=== PATIENT | male | born 1975 | race Two or more races ===

== ENCOUNTER 2024-12-14 12:01 | Inpatient (IN) | payer OTHER ==
[~2024-12-14] VITALS: Ht 175.3 cm; Wt 107.0 kg
[2024-12-14] MEDS ORDERED: PANTOPRAZOLE SODIUM 40 MG/VIAL VIAL IV ONE (12:15)
[2024-12-14] MEDS ORDERED: PIPERACILLIN/TAZOBACTAM SODIUM 3.375 GM VIAL IV ONE (12:15)
[2024-12-14] MEDS ORDERED: 0.9 % SODIUM CHLORIDE 1,000 ML IV ONE (12:15)
[2024-12-14] MEDS ORDERED: ELIQUIS5 M1 PO (12:21)
[2024-12-14] MEDS ORDERED: NEURONTIN300 MG PO (12:21)
--- NOTE | 2024-12-14 12:25 | NUR ---
SE RECIBE PACIENTE ALERTA Y ORIENTADO X3 EN COMPANIA DE AMBULANCIA LOS CUALES REFIEREN VENIR POR UN [facility]SFER [facility] ACEPTADO POR DRA. GUEVARA POR DIAGNOSRICO DE COLELITIASIS.
[2024-12-14 14:14] LABS: BASO % 0.4 % (0.1-1.2); EOS # 0.53 (0.04-0.54); EOS % 7.4 % (0.7-7.0); LYMPH # 1.42 (1.18-3.74); LYMPH % 19.9 % (19.3-53.1); MEAN PLATELET VOLUME 10.40 fl (9.4-12.4); MONO # 0.73 (0.24-0.82); MONO % 10.3 % (4.7-12.5); NEUT # 4.39 (1.56-6.13); NEUT % 61.7 % (34.0-71.1); RED CELL DISTRIBUTION WIDTH 15.8 % (11.6-14.4)
--- NOTE | 2024-12-14 14:36 | NUR ---
SE EDUCA A PACIENTE SOBR ETRATAMIENTO MEDICO EL CUAL REFIERE ENTENDER, SE COLECTAN MUESTRAS DE LAB Y SE ADMINISTRA MEDICAMENTOS TIMO ORDEN MEDICA.
[2024-12-14 14:41] LABS: ALT/SGPT 288.0 U/L (12-78); AST/SGOT 124.0 U/L (15-37); BILIRUBIN,CONJUGATED 9.54 mg/dL (0.0-0.2); BUN CREA RATIO 8.0 (7.0-25.0); CREATININE SERUM 0.84 mg/dL (0.70-1.30); GFR 96.33; GLOBULINA 3.9 G/DL (2.4-3.5); GLUCOSE FASTING 110.0 mg/dL (65-100); OSMOLALITY SERUM 282.0 MOSM/KG (275-295)
[2024-12-14 14:45] LABS: BILIRUBIN TOTAL 12.9 mg/dL (0.3-1.2)
[2024-12-14 15:15] LABS: URINE APPEARANCE Clear; URINE BILIRRUBIN Large (NEGATIVE); URINE BLOOD Negative; URINE COLOR Dark Yellow; URINE GLUCOSE Negative (NEGATIVE); URINE LEUKOCYTE Trace; URINE NITRATE Negative; URINE PROTEIN Trace (NEGATIVE); URINE UROBILINOGEN 1.0 E.U./dl
[2024-12-14 15:19] LABS: URINE EPITHELIAL CELLS 2.7 uL (0.0-38.8); URINE RBC 4.9 uL (0.0-20.8)
[2024-12-14 15:23] LABS: INR 0.98
[2024-12-14 15:39] LABS: URINE BACTERIA 2.3 uL (0.0-1933); URINE CAST 0.00 uL (0.0-1.40); URINE KETONE 40 (NEGATIVE); URINE WBC 1.5 uL (0.0-23.2)
[2024-12-14] MEDS ORDERED: GABAPENTIN 300 MG CAPSULE PO SCH (21:00)
[2024-12-15 07:28] VITALS: BP 124/85
[2024-12-15] MEDS ORDERED: FAMOTIDINE/PF 20 MG/2 ML VIAL IV SCH ×2 (09:00)
[2024-12-15] MEDS ORDERED: METOPROLOL SUCCINATE 100 MG TAB.SR.24H PO SCH (09:00)
[2024-12-15] MEDS ORDERED: PATIENTS OWN MEDICATION (MEDICAMENTO EN PISO) PO SCH (09:00)
[2024-12-15] MEDS ORDERED: APIXABAN 5 MG TABLET PO SCH (09:00)
[2024-12-15] MEDS ORDERED: MYCOPHENOLATE MOFETIL PO SCH (17:00)
[2024-12-15 18:58] VITALS: BP 133/84; O2SAT 97
[2024-12-16 01:20] VITALS: BP 107/66; O2SAT 96
[2024-12-16 09:20] LABS: BASO % 0.5 % (0.1-1.2); EOS # 0.51 (0.04-0.54); EOS % 8.3 % (0.7-7.0); LYMPH # 1.38 (1.18-3.74); LYMPH % 22.5 % (19.3-53.1); MEAN PLATELET VOLUME 10.10 fl (9.4-12.4); MONO # 0.76 (0.24-0.82); NEUT # 3.43 (1.56-6.13); NEUT % 56.1 % (34.0-71.1); RED CELL DISTRIBUTION WIDTH 16.1 % (11.6-14.4)
[2024-12-16 09:21] LABS: MONO % 12.4 % (4.7-12.5)
[2024-12-16 09:25] VITALS: BP 135/86
[2024-12-16 10:21] LABS: ALT/SGPT 219.0 U/L (12-78); AST/SGOT 102.0 U/L (15-37); BUN CREA RATIO 7.0 (7.0-25.0); CREATININE SERUM 0.99 mg/dL (0.70-1.30); GFR 79.69; GLOBULINA 3.0 G/DL (2.4-3.5); GLUCOSE FASTING 115.0 mg/dL (65-100); OSMOLALITY SERUM 282.0 MOSM/KG (275-295)
[2024-12-16 10:26] LABS: BILIRUBIN TOTAL 13.61 mg/dL (0.3-1.2); BILIRUBIN,CONJUGATED 11.0 mg/dL (0.0-0.2)
[2024-12-16] MEDS ORDERED: ACETAMINOPHEN 500 MG GEL..CAP PO PRN (16:30)
[2024-12-16 17:45] VITALS: BP 128/80; O2SAT 97
[2024-12-17 02:06] VITALS: BP 127/83; O2SAT 96
[2024-12-18 02:01] VITALS: BP 121/81; O2SAT 98
[2024-12-18 06:40] LABS: BASO % 0.6 % (0.1-1.2); EOS # 0.58 (0.04-0.54); EOS % 8.1 % (0.7-7.0); LYMPH # 1.99 (1.18-3.74); LYMPH % 27.8 % (19.3-53.1); MEAN PLATELET VOLUME 10.80 fl (9.4-12.4); MONO # 0.92 (0.24-0.82); NEUT # 3.61 (1.56-6.13); NEUT % 50.3 % (34.0-71.1); RED CELL DISTRIBUTION WIDTH 16.7 % (11.6-14.4)
[2024-12-18 06:50] LABS: MONO % 12.8 % (4.7-12.5)
[2024-12-18 07:30] LABS: ALT/SGPT 163.0 U/L (12-78); AST/SGOT 61.0 U/L (15-37); BUN CREA RATIO 14.0 (7.0-25.0); CREATININE SERUM 0.94 mg/dL (0.70-1.30); GFR 84.61; GLOBULINA 3.0 G/DL (2.4-3.5); GLUCOSE FASTING 95.0 mg/dL (65-100); OSMOLALITY SERUM 283.0 MOSM/KG (275-295)
[2024-12-18 07:33] LABS: BILIRUBIN TOTAL 15.02 mg/dL (0.3-1.2)
[2024-12-18 08:59] VITALS: BP 96/61; O2SAT 98
[2024-12-18 09:11] LABS: ANTI THYROID PEROXIDASE 26 IU/mL (0-34)
[2024-12-18 11:08] LABS: hav igm Negative (Negative); hep b c Negative (Negative); hep b s ag Negative (Negative)
[2024-12-18 13:12] LABS: CA 19-9 18 U/mL (0-35)
[2024-12-18] MEDS ORDERED: DICLOFENAC SODIUM 100 MG SUPP.RECT RECTAL ONE (14:30)
[2024-12-18] MEDS ORDERED: GLUCAGON 1 MG VIAL IV ONE ×2 (14:45→16:30)
[2024-12-18] MEDS ORDERED: IOVERSOL 320 MG/ML - 50 ML VIAL IV ONE (16:15)
[2024-12-19 02:27] VITALS: BP 118/72; O2SAT 96
[2024-12-19 09:03] LABS: BASO % 0.4 % (0.1-1.2); EOS # 0.47 (0.04-0.54); EOS % 6.0 % (0.7-7.0); LYMPH # 1.53 (1.18-3.74); LYMPH % 19.6 % (19.3-53.1); MEAN PLATELET VOLUME 10.50 fl (9.4-12.4); MONO # 0.78 (0.24-0.82); MONO % 10.0 % (4.7-12.5); NEUT # 4.98 (1.56-6.13); NEUT % 63.6 % (34.0-71.1); RED CELL DISTRIBUTION WIDTH 16.7 % (11.6-14.4)
[2024-12-19 09:38] LABS: ALT/SGPT 128.0 U/L (12-78); AST/SGOT 48.0 U/L (15-37); BUN CREA RATIO 13.0 (7.0-25.0); CREATININE SERUM 0.93 mg/dL (0.70-1.30); GFR 85.66; GLOBULINA 3.1 G/DL (2.4-3.5); GLUCOSE FASTING 89.0 mg/dL (65-100); OSMOLALITY SERUM 279.0 MOSM/KG (275-295)
[2024-12-19 09:39] LABS: BILIRUBIN TOTAL 13.75 mg/dL (0.3-1.2)
[2024-12-19 09:56] VITALS: BP 130/87
[2024-12-19] MEDS ORDERED: CIPRO500 MG PO (14:56)
[2024-12-19] MEDS ORDERED: ELIQUIS5 MG PO (14:56)
[2024-12-19] MEDS ORDERED: TOPROL XL100 M1 PO (14:56)
[2024-12-19] MEDS ORDERED: GABAPENTIN300 MG PO (14:57)
[2024-12-19] MEDS ORDERED: ENTRESTO 97 MG1 EACH PO (14:58)
== END 2024-12-19 22:58 | disposition home or self-care (01) | DRG 445 ==
LOC: ER 12:01 → MEDJ 18:51
PROVIDERS: General Practice; Internal Medicine; ADMIT Internal Medicine; ATTEND Internal Medicine
PROC: BF37YZZ Magnetic Resonance Imaging (MRI) of Pancreas using Other Contrast (ICD-10-PCS; 2024-12-14)
PROC: B24BYZZ Ultrasonography of Heart with Aorta using Other Contrast (ICD-10-PCS; 2024-12-14)
PROC: BW30YZZ Magnetic Resonance Imaging (MRI) of Abdomen using Other Contrast (ICD-10-PCS; 2024-12-16)
PROC: 4A12X4Z Monitoring of Cardiac Electrical Activity, External Approach (ICD-10-PCS; 2024-12-17)
PROC: 0FJD8ZZ Inspection of Pancreatic Duct, Via Natural or Artificial Opening Endoscopic (ICD-10-PCS; principal; 2024-12-18 13:45)
DX: K80.20 Calculus of gallbladder without cholecystitis without obstruction (principal); I50.20 Unspecified systolic (congestive) heart failure; R17 Unspecified jaundice; R69 Illness, unspecified; I11.0 Hypertensive heart disease with heart failure; I48.91 Unspecified atrial fibrillation
CPT/HCPCS: 74182

== ENCOUNTER 2025-04-01 06:00 | Day surgery (SDC) | payer OTHER ==
[2025-03-25 07:50] VITALS: BP 134/92
[2025-03-25 08:13] LABS: BASO % 0.2 % (0.1-1.2); EOS # 0.32 (0.04-0.54); EOS % 3.7 % (0.7-7.0); LYMPH # 1.66 (1.18-3.74); LYMPH % 19.4 % (19.3-53.1); MEAN PLATELET VOLUME 9.80 fl (9.4-12.4); MONO # 0.84 (0.24-0.82); MONO % 9.8 % (4.7-12.5); NEUT # 5.69 (1.56-6.13); NEUT % 66.7 % (34.0-71.1); RED CELL DISTRIBUTION WIDTH 13.1 % (11.6-14.4)
[2025-03-25 08:58] LABS: ALT/SGPT 37.0 U/L (12-78); AST/SGOT 23.0 U/L (15-37); BILIRUBIN TOTAL 0.95 mg/dL (0.3-1.2); BUN CREA RATIO 12.0 (7.0-25.0); CREATININE SERUM 0.77 mg/dL (0.70-1.30); GFR 106.51; GLOBULINA 3.2 G/DL (2.4-3.5); GLUCOSE FASTING 108.0 mg/dL (65-100); OSMOLALITY SERUM 282.0 MOSM/KG (275-295)
[2025-03-25 09:12] LABS: INR 1.06
[2025-03-30 14:15] LABS: URINE APPEARANCE Clear; URINE BILIRRUBIN Negative (NEGATIVE); URINE BLOOD Negative; URINE COLOR Yellow; URINE GLUCOSE Negative (NEGATIVE); URINE KETONE Negative (NEGATIVE); URINE LEUKOCYTE Negative; URINE NITRATE Negative; URINE PROTEIN Trace (NEGATIVE); URINE UROBILINOGEN 1.0 E.U./dl
[2025-03-30 14:16] LABS: URINE BACTERIA 10.8 uL (0.0-1933); URINE EPITHELIAL CELLS 2.3 uL (0.0-38.8); URINE RBC 2.3 uL (0.0-20.8)
[2025-03-30 14:20] LABS: URINE CAST 0.14 uL (0.0-1.40); URINE WBC 1.6 uL (0.0-23.2)
[~2025-04-01] VITALS: Ht 205.7 cm; Wt 105.7 kg
[~2025-04-01 06:00] MED LIST: CIPRO500 MG PO; ELIQUIS5 M1 PO; ELIQUIS5 MG PO; ENTRESTO 97 MG1 EACH PO; GABAPENTIN300 MG PO; NEURONTIN300 MG PO; TOPROL XL100 M1 PO
[2025-04-01] MEDS ORDERED: GLUCAGON 1 MG VIAL ONE (08:30)
[2025-04-01] MEDS ORDERED: IOVERSOL 320 MG/ML - 50 ML VIAL IV ONE (08:31)
[2025-04-01] MEDS ORDERED: PIPERACILLIN/TAZOBACTAM SODIUM 3.375 GM VIAL IV ONE (08:52)
[2025-04-01] MEDS ORDERED: SUGAMMADEX SODIUM 200 MG/2 ML VIAL IV ONE (09:42)
== END 2025-04-01 11:55 | disposition home or self-care (01) ==
LOC: CIR.AMB 06:00
PROVIDERS: ATTEND Internal Medicine
DX: C25.3 Malignant neoplasm of pancreatic duct (principal); K83.1 Obstruction of bile duct; K83.8 Other specified diseases of biliary tract; R19.4 Change in bowel habit; K63.5 Polyp of colon; K83.09 Other cholangitis; T85.590A Other mechanical complication of bile duct prosthesis, initial encounter